=== PATIENT | female | born 1995 | race Two or more races ===

== ENCOUNTER 2024-12-11 16:04 | Observation (INO) | payer MEDICAID, SELFPAY ==
[2024-12-11 16:15] VITALS: BP 133/74; PULSE 112; RESP 16; O2SAT 99
[2024-12-11 16:21] VITALS: BP 111/61; PULSE 97
[2024-12-11 16:34] VITALS: BP 111/61; PULSE 97; RESP 16; RESP 99; TEMP 36.7; BMI 45.1
== END 2024-12-11 17:10 | disposition home or self-care (01) ==
PROVIDERS: Admitting Provider Specialist; Visit Provider Specialist
DX: O36.8130 Decreased fetal movements, third trimester, not applicable or unspecified (principal); Z3A.28 28 weeks gestation of pregnancy
CPT/HCPCS: 59025; 59899; G0378

== ENCOUNTER 2025-02-03 13:29 | Outpatient (RCR) | payer MEDICAID, SELFPAY ==
--- NOTE | 2025-01-20 09:27 | XR_ITS ---
Examination: Biophysical profile, ultrasound Date and time of exam: January 20, 2025 0954 hours INDICATIONS: Obesity, became Technique: Multiple transabdominal sonographic images of the pelvis abdomen obtained. Attention is directed to the breathing movement, gross body movement, amniotic fluid volume and tone. Findings: Amniotic fluid index 10.5 cm Total biophysical profile is 8 of 8. breathing movement is 2. Gross body movement is 2. tone is 2. Qualitative amniotic fluid volume is 2 Impression: Biophysical profile is 8 of 8.
[2025-01-20 11:03] VITALS: BP 110/56; PULSE 79; RESP 16; TEMP 36.7
--- NOTE | 2025-01-27 09:28 | XR_ITS ---
Examination: Biophysical profile, ultrasound Date and time of exam: January 27, 2025 0949 hours INDICATIONS: Diagnosis obesity complicating Technique: Multiple transabdominal sonographic images of the pelvis abdomen obtained. Attention is directed to the breathing movement, gross body movement, amniotic fluid volume and tone. Findings: Amniotic fluid index 15.1 cm Total biophysical profile is 8 of 8. breathing movement is 2. Gross body movement is 2. tone is 2. Qualitative amniotic fluid volume is 2 Impression: Biophysical profile is 8 of 8.
[2025-01-27 10:25] VITALS: BP 95/55; PULSE 93; RESP 16; TEMP 36.7
--- NOTE | 2025-02-03 13:35 | XR_ITS ---
Examination: Biophysical profile, ultrasound Date and time of exam: February 03, 2025 1341 hours INDICATIONS: Diagnosis obesity complicating Technique: Multiple transabdominal sonographic images of the pelvis abdomen obtained. Attention is directed to the breathing movement, gross body movement, amniotic fluid volume and tone. Findings: Amniotic fluid index 6.3 cm Total biophysical profile is 8 of 8. breathing movement is 2. Gross body movement is 2. tone is 2. Qualitative amniotic fluid volume is 2 Impression: Biophysical profile is 8 of 8.
[2025-02-03 14:00] VITALS: BP 112/75; PULSE 92; RESP 16; TEMP 36.7
== END 2025-02-03 23:59 | disposition home or self-care (01) ==
LOC: S4S1 13:29
PROVIDERS: Referring Provider Nurse Practitioner Women's Health; Visit Provider Nurse Practitioner Women's Health
DX: O99.213 Obesity complicating pregnancy, third trimester (principal); E66.9 Obesity, unspecified; Z3A.36 36 weeks gestation of pregnancy
CPT/HCPCS: 59025; 76819

== ENCOUNTER 2025-02-07 17:11 | Outpatient (CLI) | payer MEDICAID, SELFPAY ==
[2025-02-07] VITALS (7 sets, daily range): BP systolic 126; BP diastolic 85; PULSE 100–128; RESP 19–99; TEMP 36.6; O2SAT 99–100; BMI 50.2
--- NOTE | 2025-02-07 17:23 | XR_ITS ---
Examination: Complete OB ultrasound greater than 14 weeks Date and time of exam: February 07, 2025 1728 hours INDICATIONS: Decreased movement beginning this morning Findings: No heart tones Estimated weight 2795.9 g IMPRESSION: demise
--- NOTE | 2025-02-07 19:17 | XR_ITS ---
Examination: Complete OB ultrasound greater than 14 weeks Date and time of exam: February 07, 2025 2029 hours INDICATIONS: Decreased movement beginning this morning Findings: Intrauterine single fetus with single amniotic sac presentation cephalic, no heart tones Placenta posterior grade 2 Umbilical cord insertion not seen Amniotic fluid index 2.1 cm spine maternal right Cervix 1.8 cm Ovaries obscured by bowel gas Composite estimated gestational age based on BPD, head circumference, abdominal circumference, femur length is 36 weeks 1 day Estimated weight 2826 g. Impression: No cardiac motion consistent with demise.
--- NOTE | 2025-02-07 21:30 | PC.NURSE ---
Hand-off report from Stephanie Calix RN. RN x2 at bedside with patient to discuss plan of care. Patient requests to see a copy of her ultrasound confirming the demise. Patient informed that there is a process to this through medical records and that we cannot print anything for patient to take home. However, patient informed that if this is too much information to take in at this time and patient cannot make a decision as to how she would choose to have her baby, that she may go home to think about this and discuss with family the next best action and plan of care. Patient states that she would rather be discharged and allowed to return home and to follow-up with her poultry slaughterer on Sunday, as previously discussed by Dr. Huddleston.
--- NOTE | 2025-02-07 22:00 | ESPR_ITS ---
Addendum Progress Note Addendum Date of report being addended: 02/07/25 Narrative: The patient is a 29-year-old G1, P0 at 36-5/7 weeks estimated gestational age who presented to OB triage reporting decreased movement since 8:00 this morning. She called triage around 4 PM today and was told to come in to get evaluated. She was on the unit at 5 PM. The construction project administrator could not find heart tones on Doppler and I was called immediately to bedside. I performed a bedside ultrasound and did not see cardiac activity. We called for an official ultrasound which was present at bedside approximately 20 minutes later. An official ultrasound revealed an intrauterine demise with no FHTs and no movement. The baby was in a vertex presentation with an EFW of 2796 gm. The baby's measurements were consistent with 36-2/7 weeks. The patient was receiving regular care visits through [facility]. We unfortunately had no records available from [facility] at the time of evaluation in triage. Per patient, she has had been having an uncomplicated . She stated that she saw a maternal- medicine provider this for an ultrasound. She stated that she had normal genetic testing. Today, she denied fevers,chills, loss of fluids, contractions, or vaginal bleeding. She denied any recent trauma. She denied nausea and vomiting. She denies smoking or drug use. She stated that sometimes she would eat a popsicle and she would feel the baby move. She stated this was not working today so she called the hospital and was told to come immediately to OB triage. Of note, the patient was getting weekly NSTs and BPP's for maternal obesity. Her BMI is 50. She was last seen in triage for an NST and BPP on February 03, 2025. At the time, the biophysical profile was 8 out of 8. The JAKE was 6.3. The patient had a reactive tracing. She denies hypertension, diabetes, or any other chronic medical problems this . On evaluation evaluation in triage her vital signs were stable specifically she was not hypertensive she was afebrile her O2 sats were within normal limits. The patient was understandably quite upset and called in multiple family members who came to bedside. The patient herself is bilingual. Many of her family members speak only Yakut. I went to the bedside to discuss a demise with the patient and her family members. Renae, the charge manager, was at bedside translating. The patient was crying. Her family had multiple questions about why the patient had a demise. They asked about next steps. The father the baby came a while later. Upon further discussion, the father the baby requested a second official ultrasound be performed to confirm the findings. Another greenhouse technician was called up to perform a bedside ultrasound which again revealed an intrauterine demise at 36-2/7 weeks with no cardiac activity. I told the patient and her family that a demise is a rare occurrence especially in a low risk patient. I explained we would try to find out why she had a demise at delivery. I would recommend sending the placenta, checking the baby for chromosome problems, and checking lab work to try to find out any etiology. I explained two thirds of the time no etiology is found. They are all quite upset. They especially wanted to know how the patient could have a reactive NST on SundayFebruary 03. As for next steps, I told the patient and the family it is best for the patient to deliver vaginally. That we would induce her labor with medications. I explained that this could be a long induction. I did not recommend a for delivery as it puts the patient at risk for bleeding, infection and further C-sections. The patient was asking when Vivi is front window cashier again. According to the call schedule, Vivi is on on February 10. Told the patient that unfortunately since it is a Sunday it would be difficult to send her in for a second opinion with an ultrasound unless she goes to another emergency room which I did not recommend. If the patient declines induction now, I recommended the patient go home and follow-up with Vivi on Sunday. She can then be referred for a second opinion to another provider or to another ultrasound if she so desires. The patient was given information on up-to-date about stillbirth. She was given discharge instructions including to come back for any heavy bleeding, painful contractions, fevers, chills, foul vaginal odor or loss of fluids. All questions were answered to the best of my ability. The patient elected to be discharged at this time.
== END 2025-02-07 22:15 | disposition home or self-care (01) ==
LOC: S4S1 17:12 → S4SX 17:14
PROVIDERS: Referring Provider Obstetrics & Gynecology; Visit Provider Obstetrics & Gynecology
DX: O36.8130 Decreased fetal movements, third trimester, not applicable or unspecified (principal); O36.4XX0 Maternal care for intrauterine death, not applicable or unspecified; Z3A.36 36 weeks gestation of pregnancy
CPT/HCPCS: 76805; 80307

== ENCOUNTER 2025-02-10 05:37 | Inpatient (IN) | payer MEDICAID, SELFPAY ==
[2025-02-10] VITALS (114 sets, daily range): BP systolic 96–134; BP diastolic 51–73; PULSE 80–126; RESP 16–20; TEMP 36.6–37.2; O2SAT 92–100; BMI 47.5
[2025-02-10 06:58] LABS: Basophils # (Auto) 0.0 Thou/mm3 (0.0-0.2); Basophils % (Auto) 0 % (0-2.5); Eosinophils # (Auto) 0.1 Thou/mm3 (0.0-0.5); Eosinophils % (Auto) 1 % (0-10); Hematocrit 35.8 % (36.0-46.0); Hemoglobin 12.2 g/dL (12.0-16.0); Immature Granulocytes Auto 0.21 Thou/mm3 (0.00-0.00); Lymphocytes # (Auto) 2.3 Thou/mm3 (1.0-4.8); Lymphocytes % (Auto) 30 % (10-50); Mean Corpuscular HGB Conc 34.1 g/dl (31.0-37.0); Mean Corpuscular Hemoglobin 29.0 pg (25.0-35.0); Mean Corpuscular Volume 85 fL (80-100); Monocytes # (Auto) 0.6 Thou/mm3 (0.0-0.8); Monocytes % (Auto) 7 % (0-12); Neutrophils # (Auto) 4.3 Thou/mm3 (1.8-7.7); Neutrophils % (Auto) 58 % (37-80); Nucleated Red Blood Cell # 0.00 Thou/mm3 (0.00-0.00); Nucleated Red Blood Cell % 0 /100 WBC (0); Platelet Count 198 Thou/mm3 (140-440); RDW Standard Deviation 45.8 fL (36.4-46.3); Red Blood Count 4.20 Miln/mm3 (4.00-5.20); White Blood Count 7.4 Thou/mm3 (3.6-11.0)
[2025-02-10] MEDS: ceFAZolin/D5W 2 GM IV 2 GM/100 ML BAG IV ×3 (07:29→23:18)
[2025-02-10] MEDS: FAMOTIDINE INJ 10 MG/ML VIAL 2 ML 20 MG IV (07:29)
[2025-02-10] MEDS: METOCLOPRAMIDE INJ 5 MG/ML VIAL 2 ML 10 MG IVP (07:29)
[2025-02-10 07:32] LABS: Syphilis Nonreactive (Nonreactive)
[2025-02-10 07:32] LABS: Amphetamine/Metham Scrn,Ur OB Negative (Negative); Benzoylecgonine Screen, Ur OB Negative (Negative); Opiate Screen,Urine OB Negative (Negative); THC Screen,Urine OB Negative (Negative)
--- NOTE | 2025-02-10 07:36 | PD.LDHP ---
Documentation for date of: 02/10/25 OB Labor/Induct. HPI History of Present Illness Chief complaint: Primary for intrauterine demise : 1 Para: 0 Term pregnancies: 0 pregnancies: 0 Living children: 0 History of Abortions: Spontaneous and Elective: 0 History of sections: No History of : No CARMELA: 03/02/25 Gestational Age (weeks): 37 Gestational Age (days): 1 History of present illness: 29-year-old G1, P0 at 37 weeks and 1 day is presenting for scheduled primary due to intrauterine demise. Patient initially presented to triage on 02/07/2025 with decreased movement and asystole was diagnosed during triage evaluation. She was counseled by the on-call physician with all options including admission for induction versus delivery and patient left the hospital wanting more time to decide/get a second opinion. Patient returned again yesterday requesting to be delivered via section. On presentation she was counseled by me extensively I reviewed all options including induction of labor versus including the risks and benefits advantages and alternatives of each. After detailed review of all options and the opportunity to ask questions patient and her elected to proceed with delivery via informed consents were obtained and she was scheduled for 7:30 AM today. Patient denies any vaginal bleeding, leakage of fluid, fever, chills, systemic symptoms or any other abnormalities Labs Labs: Unknown: RPR, Hepatitis B, Rubella Titre, HIV, Chlamydia, Gonorrhea, Herpes Type 1, Herpes Type 2, Group Beta Strep and Covid-19 Past Medical History Surgical History SURGICAL: Negative Section Meds Home Medications and Allergies Home Medications ?Medication ?Instructions ?Recorded ?Confirmed ?Type aspirin 81 mg capsule 81 mg PO QDAY 02/07/25 02/10/25 History vits no.130-ferrous fum 1 tab PO QDAY 02/10/25 02/10/25 History 27 mg iron-folic acid 800 mcg tablet ( Vitamin) Allergies Allergy/AdvReac Type Severity Reaction Status Date / Time No Known Allergies Allergy Verified 02/10/25 05:50 OB Exam Physical Exam Vital signs: Temp Pulse Resp BP Pulse Ox O2 Del Method 98.1 F 94 16 111/51 L 98 Room Air 02/10/25 06:16 02/10/25 06:08 02/10/25 06:16 02/10/25 06:08 02/10/25 06:16 02/10/25 06:16 Constitutional Constitutional: no acute distress Routine HEENT Exam Head: Present normocephalic and atraumatic Eye: Present EOMI and PERRL ENT: Present mucous membranes moist Routine Neck Exam Neck: Present supple and trachea midline Routine Cardiovascular Exam Cardiovascular: Present RRR Routine Abdominal Exam Abdominal: Present soft and normoactive bowel sounds Routine Extremities Exam Extremities: Present full ROM Routine Skin Exam Skin: Present intact, dry and warm Routine Neurological Exam Neurological: Present alert, oriented X3 and CN II-XII intact Routine Psychiatric Exam Psychiatric: Present normal affect and normal thought process OB Results Labs 02/10/25 06:00 Labs: Short CBC 02/10/25 Range/Units 06:00 WBC 7.4 (3.6-11.0) Thou/mm3 Hgb 12.2 (12.0-16.0) g/dL Hct 35.8 L (36.0-46.0) % Plt Count 198 (140-440) Thou/mm3 OB Assessment & Plan Assessment and Plan (1) demise, greater than 22 weeks, antepartum, single gestation: Status: Acute Assessment and plan: Admit to inpatient status for primary low transverse IV access, CBC, type and screen, LR at 125, RPR, COVID-19 test GBS negative Ancef 2 g prior to surgery start Dumont catheter to drainage SCDs for DVT prophylaxis Anesthesia to preop for spinal anesthesia Scheduled for surgery. (2) delivery delivered: Status: Acute
--- NOTE | 2025-02-10 08:43 | PD.GYNPROC ---
Operative Note - PERFORMANCE MANAGEMENT CONSULTANT Procedure Date of procedure: 02/10/25 Procedure Performed: Primary low-transverse section Indication: 29-year-old G1, P0 at 37 weeks and 1 day with intrauterine demise Maternal request for delivery Anesthesia type: Spinal Procedure description: Informed consent was obtained and the patient was taken to the operating room. Identity was confirmed by double identifiers and she was placed on the operating table. Spinal anesthesia was administered and she was positioned in the supine position. The abdomen and perineum were prepped in the usual sterile fashion and a Dumont catheter was placed to continuous drainage. Sterile drapes were applied. The incision site was tested for adequacy of anesthesia. A Pfannenstiel skin incision was made with a scalpel and carried to the subcutaneous fat up to the rectus fascia. The rectus fascia was incised on either side of the midline and the incisions were extended bilaterally. The fascia was gently dissected off the ventral surface of the rectus muscle both superiorly and inferiorly. The rectus bellies were gently in the midline and the peritoneum was identified and entered bluntly using the surgeon's finger. The peritoneal opening was now stretched to create an adequate opening for access to the uterus. Vito O-ring retractor was placed for adequate visualization. The anterior surface of the uterus was palpated. The bladder reflection was identified and a Tracy Kinsey low transverse uterine incision was made in the lower uterine segment taking care to avoid the bladder. Uterine entry was accomplished bluntly and the opening was stretched to create adequate room. The amniotic membranes were now ruptured and bloodstained amniotic fluid was released. The fetus was noted to be in the vertex position. There was molding of the head with overlapping of skull bones. The skin also appeared to be macerated with peeling The head was gently elevated out of the maternal pelvis and multiple loops of umbilical cord were noted to be wrapped around the legs and body with stretching and almost shearing of the umbilical cord insertion on the side. The cord was released and the rest of the shoulders and body were delivered by gentle fundal pressure. Umbilical cord was doubly clamped, divided and the infant was handed over to the waiting team. The placenta was delivered by gentle traction on the umbilical cord. The interior of the uterus was now thoroughly cleaned of all blood and debris and membranes. The hysterotomy angles were grasped by a pair of Allis clamps and the hysterotomy was closed using 1 Monocryl suture in 2 layers. The first layer was used to approximate the muscle in a running locked fashion, the second layer was used to approximate the thickness of the myometrium and uterine serosa in an imbricated manner. Once the repair was completed the hysterotomy was inspected and noted to be adequately hemostatic. The hysterotomy was once again inspected and hemostasis was noted to be satisfactory. The Vito retractor was now removed. The peritoneal edges were re approximated. The rectus muscles were re approximated. The rectus fascia was now repaired using 0 Vicryl suture in a running fashion. The subcutaneous layer was now copiously irrigated using warm normal saline. All bleeding points were cauterized using the Bovie. The subcutaneous fat was closed using 3-0 Vicryl. The skin was closed using 4-0 Monocryl in a subcuticular fashion. The skin was cleaned and a sterile dressing was applied. The patient was now undraped, the abdomen and back were thoroughly cleaned and she was transferred to the recovery room in a stable and awake condition. The patient tolerated the entire procedure well. No complications were encountered. All instrument, sponge and lap counts were correct x2. Estimated blood loss (ml): 600 Complications: none Surgical staff Operation Date: 02/10/25 07:45 Case Staff CORPORATE MANAGER: Wagner Davies RN First Assistant: Antonella Burkett Diagnosis Discharge Diagnosis (1) delivery delivered: Status: Acute (2) demise, greater than 22 weeks, antepartum, single gestation: Status: Acute Problem List Completed Was Problem List Reviewed/Reconciled?: Yes
--- NOTE | 2025-02-10 08:46 | PD.LDDELS ---
Data ([place]) Data Hx Section: No : 1 Term: 0 : 0 Livin Abortions: Spontaneous & Theraputic: 0 Delivery Data ([place]) Labor Data Induction/Augmentation Agent: None ROM date: 02/10/25 ROM time: : Amniotic membrane rupture type: Artificial Amniotic fluid description: Clear Delivery Data [place] delivery date: 02/10/25 delivery time: 08: Placenta delivery date: 02/10/25 Placenta delivery time: : Delivered by: Carol Delivery nurse: Keeley Paez nurse: Dayana Neely Sports Manager at delivery: No Support person(s) at delivery: [facility] Delivery Method Delivery method: Low Transverse Presentation: Vertex Anesthesia Type Anesthesia Type: Spinal Anesthesia type: Spinal Placenta Placenta delivery description: Manual Removal Episiotomy Episiotomy description: None [place] Data ([place]) Data 's gender: Female weight (gms): 2740 g Weight (pounds): 6 lbs and 0.7 ozs [place] length: 48 cm
[2025-02-10] MEDS: OXYTOCIN in NS 20 units 20 UNIT/1,000 ML BAG 125 UNIT IV ×2 (09:37→20:04)
--- NOTE | 2025-02-10 10:52 | PC.NURSE ---
0822 stillbirth baby girl, to warmer for measurements: Wt: 2740g, Head: 33cm, chest: 31cm, abdomen: 29cm, Lenght: 48cm. Wrapped with hospital blanket then brought to [facility] in cooling crib. At 1050 baby [facility] to [facility] [place] by Velvet Lee RN
[2025-02-10] MEDS: ONDANSETRON INJ 2 MG/ML INJ 2 ML 4 MG IV (11:22)
[2025-02-10] MEDS: SODIUM CHLORIDE 0.9% 1000 ML 1,000 ML 999 ML IV (11:49)
[2025-02-10] MEDS: KETOROLAC INJ 30 MG/ML VIAL IVP ×2 (13:00→20:09)
--- NOTE | 2025-02-10 13:58 | PC.NURSE ---
RN at bedside discussing POC for infant, education given on the cuddle cot use and recommendation of releasing remains at 4hr shireen. Pt choosing [place] [facility] [place], donor network contacted and aware of stillbirth, Ornament Maker Hand edita rebollar arrived to [facility] at 1050 case #: [id number], [facility] called for baby blessing Deacon Ron Clarke at bedside at 1350 for prayer/blessing. Patient given crib card, memory box, foot prints, photos, and support groups information. Social service ordered for patient. 1410 RN asking patient if ready for mortuary to come for remains pt states that she'd like more time with her baby.
[2025-02-10 14:25] LABS: Lactate (Lactic Acid) 1.3 mMol/L (0.4-2.0)
[2025-02-10 14:34] LABS: Basophils # (Auto) 0.0 Thou/mm3 (0.0-0.2); Basophils % (Auto) 0 % (0-2.5); Eosinophils # (Auto) 0.0 Thou/mm3 (0.0-0.5); Eosinophils % (Auto) 0 % (0-10); Hematocrit 32.4 % (36.0-46.0); Hemoglobin 10.7 g/dL (12.0-16.0); Immature Granulocytes Auto 0.11 Thou/mm3 (0.00-0.00); Lymphocytes # (Auto) 1.1 Thou/mm3 (1.0-4.8); Lymphocytes % (Auto) 13 % (10-50); Mean Corpuscular HGB Conc 33.0 g/dl (31.0-37.0); Mean Corpuscular Hemoglobin 29.3 pg (25.0-35.0); Mean Corpuscular Volume 89 fL (80-100); Monocytes # (Auto) 0.5 Thou/mm3 (0.0-0.8); Monocytes % (Auto) 6 % (0-12); Neutrophils # (Auto) 7.1 Thou/mm3 (1.8-7.7); Neutrophils % (Auto) 80 % (37-80); Nucleated Red Blood Cell # 0.00 Thou/mm3 (0.00-0.00); Nucleated Red Blood Cell % 0 /100 WBC (0); Platelet Count 171 Thou/mm3 (140-440); RDW Standard Deviation 47.2 fL (36.4-46.3); Red Blood Count 3.65 Miln/mm3 (4.00-5.20); White Blood Count 8.9 Thou/mm3 (3.6-11.0)
[2025-02-10 14:57] LABS: Alanine Aminotransferase 19 U/L (10-49); Albumin, Serum 3.3 gm/dL (3.5-5.0); Albumin/Globulin Ratio 1.4 (1.2-2.2); Alkaline Phosphatase 127 U/L (46-116); Anion Gap 13 (7-16); Aspartate Amino Transferase 22 U/L (0-34); BUN/Creatinine Ratio 10 Ratio (12-20); Bilirubin,Total 0.5 mg/dL (0.3-1.2); Blood Urea Nitrogen < 5 mg/dL (9-23); Calcium 8.4 mg/dL (8.3-10.6); Calcium (Corrected) 9.0 mg/dL (8.5-10.1); Carbon Dioxide 19.3 mMol/L (20.0-31.0); Chloride 110 mMol/L (98-107); Creatinine (Component) 0.5 mg/dL (0.6-1.3); Estimated Creatinine Clearance 206.1 mL/min (>60); Globulin 2.4 gm/dL (2.3-3.5); Glucose 105 mg/dL (74-106); Osmolality,Calculated 280 (275-295); Potassium 3.8 mMol/L (3.4-5.1); Sodium 142 mMol/L (136-145); Total Protein 5.7 gm/dL (5.7-8.2); eGFR > 60 See Note
--- NOTE | 2025-02-10 15:47 | PC.NURSE ---
1540 [facility] at bedside for .
[2025-02-11] MEDS: HYDROcodone/APAP 5/325 TABLET 2 TAB PO ×2 (03:28→15:36)
[2025-02-11 03:33] VITALS: BP 102/65; PULSE 87; RESP 19; TEMP 36.6; O2SAT 99
[2025-02-11 06:11] LABS: Basophils # (Auto) 0.0 Thou/mm3 (0.0-0.2); Basophils % (Auto) 0 % (0-2.5); Eosinophils # (Auto) 0.1 Thou/mm3 (0.0-0.5); Eosinophils % (Auto) 1 % (0-10); Hematocrit 29.9 % (36.0-46.0); Hemoglobin 9.8 g/dL (12.0-16.0); Immature Granulocytes Auto 0.14 Thou/mm3 (0.00-0.00); Lymphocytes # (Auto) 1.3 Thou/mm3 (1.0-4.8); Lymphocytes % (Auto) 16 % (10-50); Mean Corpuscular HGB Conc 32.8 g/dl (31.0-37.0); Mean Corpuscular Hemoglobin 29.3 pg (25.0-35.0); Mean Corpuscular Volume 90 fL (80-100); Monocytes # (Auto) 0.7 Thou/mm3 (0.0-0.8); Monocytes % (Auto) 8 % (0-12); Neutrophils # (Auto) 6.3 Thou/mm3 (1.8-7.7); Neutrophils % (Auto) 74 % (37-80); Nucleated Red Blood Cell # 0.00 Thou/mm3 (0.00-0.00); Nucleated Red Blood Cell % 0 /100 WBC (0); Platelet Count 156 Thou/mm3 (140-440); RDW Standard Deviation 47.5 fL (36.4-46.3); Red Blood Count 3.34 Miln/mm3 (4.00-5.20); White Blood Count 8.5 Thou/mm3 (3.6-11.0)
[2025-02-11 07:59] VITALS: BP 99/57; PULSE 96
[2025-02-11] MEDS: ceFAZolin/D5W 2 GM IV 2 GM/100 ML BAG IV (08:19)
[2025-02-11] MEDS: DOCUSATE SOD 100 MG CAPSULE PO (08:19)
[2025-02-11] MEDS: IBUPROFEN TAB 400 MG TABLET 800 MG PO ×2 (08:26→19:09)
[2025-02-11 08:33] VITALS: BP 99/57; PULSE 96; RESP 18; TEMP 36.8
--- NOTE | 2025-02-11 12:30 | ESPR_ITS ---
Subjective Subjective Interval history: Delivery type: , intrauterine demise Patient doing well this morning. No acute complaints. Ambulating, tolerating p.o. and voiding without difficulty. HTN/Pre-Eclampsia screen: No chest pain, shortness of breath, headache, visual changes, epigastric or right upper quadrant pain. Bowel: Flatus+ UOP: Exam Vital Signs Temp Pulse Resp BP Pulse Ox O2 Del Method 98.3 F 96 18 99/57 L 99 Room Air 02/11/25 08:33 02/11/25 08:33 02/11/25 08:33 02/11/25 08:33 02/11/25 03:33 02/11/25 08:33 Constitutional Constitutional: no acute distress Routine HEENT Exam Head: Present normocephalic and atraumatic Eye: Present EOMI and PERRL ENT: Present mucous membranes moist Routine Neck Exam Neck: Present supple and trachea midline Routine Respiratory Exam Respiratory: Present chest non-tender, lungs clear, normal breath sounds and no resp distress Routine Cardiovascular Exam Cardiovascular: Present RRR Routine Abdominal Exam Abdominal: Present soft and normoactive bowel sounds Routine Extremities Exam Extremities: Present full ROM Routine Skin Exam Skin: Present intact, dry and warm Routine Neurological Exam Neurological: Present alert, oriented X3 and CN II-XII intact Routine Psychiatric Exam Psychiatric: Present normal affect and normal thought process Objective Labs 02/11/25 05:25 02/10/25 14:00 Labs: Laboratory Results - last 24 hr 02/10/25 02/11/25 14:00 05:25 WBC 8.9 8.5 RBC 3.65 L 3.34 L Hgb 10.7 L 9.8 L Hct 32.4 L 29.9 L MCV 89 90 MCH 29.3 29.3 MCHC 33.0 32.8 RDW Std Deviation 47.2 H 47.5 H Plt Count 171 156 Neut % (Auto) 80 74 Lymph % (Auto) 13 16 [place] % (Auto) 6 8 Eos % (Auto) 0 1 Baso % (Auto) 0 0 Neut # (Auto) 7.1 6.3 Lymph # (Auto) 1.1 1.3 [place] # (Auto) 0.5 0.7 Eos # (Auto) 0.0 0.1 Baso # (Auto) 0.0 0.0 Immature Gran # (Auto) 0.11 H 0.14 H Absolute Nucleated RBC 0.00 0.00 Immature Gran % 1 H 2 H Nucleated RBC % 0 0 Sodium 142 Potassium 3.8 Chloride 110 H Carbon Dioxide 19.3 L Anion Gap 13 BUN < 5 L Creatinine 0.5 L Estim Creat Clear Calc 206.1 eGFR > 60 BUN/Creatinine Ratio 10 L Glucose 105 Calculated Osmolality 280 Lactic Acid 1.3 Calcium 8.4 Corrected Calcium 9.0 Total Bilirubin 0.5 AST 22 ALT 19 Alkaline Phosphatase 127 H Total Protein 5.7 Albumin 3.3 L Globulin 2.4 Albumin/Globulin Ratio 1.4 Assessment & Plan Problem List (1) delivery delivered: Status: Acute Assessment and plan: 1. Continue routine /post-op care 2. Labs reviewed, cbc appropriate 3. Remove dressing/Dumont 4. Encourage to ambulate, shower 5. Encourage PO intake (2) demise, greater than 22 weeks, antepartum, single gestation: Status: Acute Time Spent With Patient Time: Total time spent is greater than 50% in coordination of care (as documented) at patient's floor/unit and/or counseling patient:
[2025-02-11 12:50] VITALS: BP 110/75; PULSE 114; RESP 16; TEMP 36.7; O2SAT 96
[2025-02-11 15:35] VITALS: BP 102/67; PULSE 92; RESP 18; TEMP 36.6; O2SAT 97
[2025-02-11 19:10] VITALS: BP 116/79; PULSE 98; RESP 18; TEMP 36.8; O2SAT 98
[2025-02-11] MEDS: HYDROcodone/APAP 5/325 TABLET 1 TAB PO (23:41)
[2025-02-12 03:55] VITALS: BP 104/68; PULSE 98; RESP 18; TEMP 36.7; O2SAT 98
[2025-02-12] MEDS: IBUPROFEN TAB 400 MG TABLET 800 MG PO (04:05)
--- NOTE | 2025-02-12 06:08 | PC.NURSE ---
Notified Dr. Cordero regarding patient's PPDS score of 25,maternal crisis, [place] Suicide Severity Rating scale done, patient low risk, MD aware. Pending Social service referral. No new orders, will update Dr. Medina.
--- NOTE | 2025-02-12 07:45 | PD.LDPPPRG ---
Subjective Subjective Interval history: Delivery type: , demise at 36 weeks, patient screened positive on EPDS but affect is appropriate for her clinical status, social insurance adviser consult requested Patient doing well this morning. No acute complaints. Ambulating, tolerating p.o. and voiding without difficulty. HTN/Pre-Eclampsia screen: No chest pain, shortness of breath, headache, visual changes, epigastric or right upper quadrant pain. lochia diminishing. Bowel: Flatus+/ BM+ Exam Vital Signs Temp Pulse Resp BP Pulse Ox O2 Del Method 98.1 F 98 18 104/68 98 Room Air 02/12/25 03:55 02/12/25 03:55 02/12/25 03:55 02/12/25 03:55 02/12/25 03:55 02/12/25 03:55 Constitutional Constitutional: no acute distress Routine HEENT Exam Head: Present normocephalic and atraumatic Eye: Present EOMI and PERRL ENT: Present mucous membranes moist Routine Neck Exam Neck: Present supple and trachea midline Routine Respiratory Exam Respiratory: Present chest non-tender, lungs clear, normal breath sounds and no resp distress Routine Cardiovascular Exam Cardiovascular: Present RRR Routine Abdominal Exam Abdominal: Present soft and normoactive bowel sounds Routine Extremities Exam Extremities: Present full ROM Routine Skin Exam Skin: Present intact, dry and warm Routine Neurological Exam Neurological: Present alert, oriented X3 and CN II-XII intact Routine Psychiatric Exam Psychiatric: Present normal affect and normal thought process Objective Labs 02/11/25 05:25 02/10/25 14:00 Assessment & Plan Problem List (1) delivery delivered: Status: Acute Assessment and plan: PPD/POD#2 1. Continue routine care 2. Transition to PO meds. 3. Encourage to ambulate/ breast-feed 4. Anticipate discharge home today. After social insurance adviser consult is completed (2) demise, greater than 22 weeks, antepartum, single gestation: Status: Acute (3) depression: Status: Acute Time Spent With Patient Time: Total time spent is greater than 50% in coordination of care (as documented) at patient's floor/unit and/or counseling patient:
--- NOTE | 2025-02-12 07:47 | ESDS_ITS ---
DS: Providers Provider Date of admission: 02/10/25 05:37 Primary care physician: Physician No Primary/Family Admitting Provider: Jack Medina MD Attending Provider on Admission: Alex Cordero MD Consults: 02/10/25 09:17 Referral Routine Comment: Attending Provider on DC: Jack Medina MD Discharging Provider: Jack Medina MD DS: Diagnosis Discharge Diagnosis (1) depression: Status: Acute (2) delivery delivered: Status: Acute (3) demise, greater than 22 weeks, antepartum, single gestation: Status: Acute Problem List Completed Was Problem List Reviewed/Reconciled?: Yes Summary/Hosp Course Brief History: 29-year-old G1, P0 at 37 weeks and 1 day is presenting for scheduled primary C- section due to intrauterine demise. Patient initially presented to triage on 02/07/2025 with decreased movement and asystole was diagnosed during triage evaluation. She was counseled by the on-call physician with all options including admission for induction versus delivery and patient left the hospital wanting more time to decide/get a second opinion. Patient returned again yesterday requesting to be delivered via section. On presentation she was counseled by me extensively I reviewed all options including induction of labor versus including the risks and benefits advantages and alternatives of each. After detailed review of all options and the opportunity to ask questions patient and her elected to proceed with delivery via informed consents were obtained and she was scheduled for 7:30 AM today. Patient denies any vaginal bleeding, leakage of fluid, fever, chills, systemic symptoms or any other abnormalities Peripartum Data Delivery Method: Low Transverse Episiotomy Description: None Procedures: Procedures Operation Date: 02/10/25 07:45 Actual Procedure Side Surgeon p in OB Jack Medina MD Time Spent with Patient Time attestation: Total time spent providing and/or coordinating discharge services: Exam Vital Signs Temp Pulse Resp BP Pulse Ox O2 Del Method 98.1 F 98 18 104/68 98 Room Air 02/12/25 03:55 02/12/25 03:55 02/12/25 03:55 02/12/25 03:55 02/12/25 03:55 02/12/25 03:55 Discharge Plan Plan Patient Disposition: HOME (Self Care) Patient condition on transfer: Stable Prescriptions/Referrals Prescriptions/Med Rec: New hydrocodone-acetaminophen 5-325 mg Tablet 1 tab PO Q6HR MDD 4 PRN (Reason: Patient rated pain 9 to 10) 7 Days Qty: 28 0RF docusate sodium 100 mg Capsule 100 mg PO QDAY 30 Days Qty: 30 0RF ibuprofen 400 mg Tablet 800 mg PO Q8HR PRN (Reason: Pain Scale 4-6 (Moderate) 10 Days Qty: 40 0RF Continued aspirin 81 mg capsule 81 mg PO QDAY Vitamin 27 mg iron- 800 mcg tablet 1 tab PO QDAY Referrals: No Primary/Family,Physician [Primary Care Provider] - Jack Medina MD [Physician] - Patient/Caregiver Discharge Instructions Meds to Beds: Yes Discharge Activity: activity as tolerated Education Materials: C Section Dc, Depression, After a , Stillbirth Print Language: Maltese Stand Alone Forms: Chaparrita Award Info., Patient Portal Info Letter, KAREL from Surgery Planned Discharge Date 02/12/25
[2025-02-12] MEDS: HYDROcodone/APAP 5/325 TABLET 2 TAB PO (07:51)
[2025-02-12 08:38] VITALS: BP 103/73; PULSE 92; PULSE 97; RESP 16; TEMP 37; O2SAT 98
--- NOTE | 2025-02-12 10:25 | PC.NURSE ---
Dr. Medina notified RN that he went to bedside and spoke to pt, per MD pt is ok to go home as soon as healthcare social worker clears pt.
[2025-02-12] MEDS: DOCUSATE SOD 100 MG CAPSULE PO (11:10)
--- NOTE | 2025-02-12 11:16 | PC.NURSE ---
1110: Johny from social media analyst spoke to the patient Yolie and provided county resources, per Johny patient is cleared to be discharged home. Notified Catalina Shaffer RN to discharge patient home.
[2025-02-12 11:20] VITALS: BP 116/74; PULSE 93; RESP 18; TEMP 36.8; O2SAT 97
--- NOTE | 2025-02-12 11:57 | PC.SS ---
REED REPAIRER conducted bedside contact with the patient to address nursing referral regarding patient?s delivery of still born infant.? REED REPAIRER introduced self and role.? At bedside with patient was Canelo SHAIKH.? Patient granted permission for FOB to be present during discussion.? Patient confirmed still born of female infant.? was patient?s first child.? Patient confirmed presence of depression due to loss.? REED REPAIRER acknowledged presence of emotion due to circumstance.? Although level of depression present, patient denies current intent/plan of SI/HI.? Patient reports possessing healthy support system consisting of FOB, mother and extended family.? FOB informed REED REPAIRER that he and family will be present with patient as she processes event.? Patient informed REED REPAIRER past alignment with mental health due to history of anxiety.? Per patient engaging in talk therapy approximately 2 years ago.? Patient informed REED REPAIRER plan to reconnect with mental health services through [facility] due past alignment with agency.? Patient was engaged and responsive throughout the discussion.? Patient informed REED REPAIRER that she will be able to draw family support upon return home.? FOB reiterated that patient will not be alone upon return home.? REED REPAIRER provided resource information to include: Warm Line, Crisis Line, Mental Health services and Care Resource Center.? REED REPAIRER offered patient and FOB condolescence.? REED REPAIRER update Labor and Delivery charge nurse.
== END 2025-02-12 11:35 | disposition home or self-care (01) | DRG 540 ==
PROVIDERS: Admitting Provider Obstetrics & Gynecology; Visit Provider Specialist
PROC: 10D00Z1 Extraction of Products of Conception, Low, Open Approach (ICD-10-PCS; CPT 59514; principal; 2025-02-10 07:30)
DX: O36.4XX0 Maternal care for intrauterine death, not applicable or unspecified (principal); Z37.1 Single stillbirth; Z3A.37 37 weeks gestation of pregnancy; O99.345 Other mental disorders complicating the puerperium; F53.0 Postpartum depression
CPT/HCPCS: 36415; 59409; 80053; 80307; 83605; 85025; 86780; 86850; 86900; 86901; 87040; 94762; 96127; A4314; A4649; J0689; J1885; J2210; J2250; J2274; J2371; J2405; J2590; J2765; J3010; J3490; J7030; A9270; J2270

== ENCOUNTER 2025-02-20 15:33 | Outpatient (AMB) | payer MEDICAID, SELFPAY ==
[2025-02-20 15:59] VITALS: BP 119/82; PULSE 86; RESP 17; TEMP 36.9; O2SAT 96; BMI 45.2
--- NOTE | 2025-02-20 15:59 | AMB.OBPP ---
Vital Signs 02/20/25 15:59 Height 1.57 m Height Method Stated Weight 111.584 kg Weight Measurement Method Standing Scale BMI 45.2 BP 119/82 Blood Pressure Source Automatic Cuff Blood Pressure Location Right Upper Arm Position Sitting Respiration 17 Pulse 86 Pulse Source Monitor Temp 98.5 F Temp Source Temporal Artery Scan Pulse Oximetry (%) 96 Oxygen Delivery Method Room Air Allergies/Home Meds Allergies & Medications Allergies No Known Allergies Allergy (Verified 02/20/25 16:00) Medication Reconciliation ibuprofen 400 mg tablet 800 mg (2 x 400 mg) PO Q8HR PRN Pain Scale 4-6 (Moderate 10 days #40 tabs 02/12/25 [Rx Confirmed 02/20/25] ibuprofen 800 mg tablet 800 mg PO Q8H PRN pain 10 days #30 tabs 02/20/25 [Rx] omeprazole 20 mg capsule,delayed release 20 mg PO QDAY 30 days #30 caps 02/20/25 [Rx] Intake Visit Data Collection New Patient or Established: Established Patient (seen at [facility] within 3 years) Reason for Visit:: Seen by Clinical Staff ONLY (RN/MA): No Drier Operator Helper Required: No Do You Feel Safe at Home: Yes Authorities Contacted: N/A PCP or OBGYN visit in last 3 months: Yes Date of Last PCP or OBGYN visit: 02/12/25 Hx Now: No Are you currently on any form of Control: No Pain Present Currently: Yes Pain Location: Abdomen Pain Scale Used: Berkowitz-Dodd/Numerical Pain scale:: 1 Smoking Status Smoking Status: 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 Past Medical History: No Hx Neurological Disorders, No Hx Cardiac Disorders, No Hx Cancer, Yes Hx Blood Disorders, Yes Hx Anemia, No Hx Gastrointestinal Disorders, No Hx Renal Disease, No Hx Diabetes Mellitus Type 1 and No Hx Diabetes Mellitus Type 2 Questionnaires Covid-19 Vaccine Questionnaire Has patient been vacinated for Covid-19 Have you been vacinated for Covid-19: No Social History Living Situation History Marital Status: Life Partner Lives With: Family Housing: House Tobacco History Smoking Status: Never smoker Second Hand Smoke Exposure: No Alcohol History Alcohol Intake: Never Domestic Abuse History Do You Feel Safe at Home: Yes EPDS - PP Depression Screening [place] Pospartum Depression Screen I have been able to laugh and see the funny side of things: (1) Not quite so much now I have looked forward with enjoyment to things: (3) Hardly at all I have blamed myself unnecessarily when things went wrong: (2) Yes, some of the time I have been anxious or worried for no good reason: (2) Yes, sometimes I have felt scared or panicky for no very good reason: (2) Yes, sometimes Things have been getting on top of me: (2) Yes, sometimes I haven't been coping as well as usual I have been so unhappy that I have had difficulty sleeping: (2) Yes, sometimes I have felt sad or miserable: (3) Yes, most of the time I have been so unhappy that I have been crying: (3) Yes, most of the time The thought of harming myself has occurred to me: (1) Hardly ever EPDS completed yes HPI Interval History: Patient reports that her incision site is getting a little itchy approximately 10 days after undergoing a section due to intrauterine demise at 36 weeks. She has been showering as instructed and has stopped taking prescribed pain medication due to experiencing drowsiness as a side effect. The patient is now managing her pain with [id number] medications as needed. She inquires about resuming activities such as driving and exercising. The patient mentions that she was instructed by a nurse not to remove certain tapes from her incision site. She denies experiencing constipation or other postoperative complications. Patient expresses interest in returning to her gym routine and requests a prescription for ibuprofen. She is a G1 T1 L1 who delivered via section approximately 10 days ago due to intrauterine demise. The patient has discontinued her prescribed pain medication due to causing sleepiness and drowsiness, and is now taking ibuprofen and Tylenol as needed for pain management. Patient engages in gym activities, including weights and cardio, and is able to perform simple housework. Reports good range of motion and denies constipation. She experiences itching at incision site. Exam Narrative Physical exam: - Abdomen: Incision site observed. [place] tape present over incision, which was removed. Incision appears to be healing well. No signs of infection or complications noted. - Musculoskeletal: Good range of motion observed. Office Procedures OB Clinic LOC & Office Proc's Nursing/Assessment Patient Status: Established Patient OB Clinic Nursing Assessment: Medication Reconciliation, Update PMH in EMR and Vital Signs OB Clinic Coordination of Care: Complex Care and Chronic Disease 1-5, Consent,records obtained, informed consent, Education Simp Pt/Fam and Staff clarify orders Established Patient Charge Established Patient Point Assignment: 85 Post Follow-up Visit Post Follow up Visit: Yes Assessment & Plan Diagnosis / Problem List (1) Routine Follow-Up: (2) Encounter for routine follow-up: Status: Acute Plan Status post section: - Incision site healing appropriately, described as beautiful upon examination. - Itching at incision site, likely due to waterproof tape still in place. - No signs of infection or complications noted. - Patient has stopped prescribed pain medication due to drowsiness. - Managing pain with [id number] analgesics as needed. Plan: - Remove all remaining surgical tape and dressings from incision site. - Continue wound care with gentle cleansing during showers. - Advance activity as tolerated: ? OK to drive. ? OK for simple housework, avoiding mopping or lifting from floor. ? Begin gentle exercises like walking and swimming. ? Avoid weight-bearing exercises for 1 month. - Prescribe ibuprofen for pain management: ? Send prescription to [facility] on [address]. ? Educate patient to take with food to avoid gastric irritation. - Follow-up appointment scheduled for 1 month post-surgery. - Anticipate lifting all activity restrictions at 1-month follow-up. (FP) Tobacco Smoking Status: Never smoker
== END 2025-02-20 16:13 | disposition home or self-care (01) ==
LOC: HODSOBC 15:33
PROVIDERS: Supervising Provider Obstetrics & Gynecology; Visit Provider Obstetrics & Gynecology
DX: Z39.2 Encounter for routine postpartum follow-up (principal)

== ENCOUNTER 2025-03-14 08:36 | Emergency (ER) | payer MEDICAID, SELFPAY ==
[2025-03-14 08:45] VITALS: BP 105/75; PULSE 103; RESP 17; TEMP 36.7; O2SAT 96; BMI 44.1
--- NOTE | 2025-03-14 08:58 | XR_ITS ---
Examination: Pelvic ultrasound, transabdominal, complete Technique: Transabdominal ultrasound of the pelvis performed using grayscale imaging Date and time of exam: March 14, 2025, 0909 hours INDICATIONS: Status post February 10, 2025, onset vaginal bleeding beginning 2 days ago FINDINGS: Uterus 8.8 cm endometrial stripe 10 mm No definite retained products of conception Right ovary 3.5 cm arterial flow Left ovary 2.7 cm arterial flow 50 mm follicular cyst IMPRESSION: Negative for retained products of conception
[2025-03-14 10:06] LABS: White Blood Count 6.8 Thou/mm3 (3.6-11.0)
[2025-03-14 10:07] LABS: Basophils # (Auto) 0.0 Thou/mm3 (0.0-0.2); Basophils % (Auto) 0 % (0-2.5); Eosinophils # (Auto) 0.4 Thou/mm3 (0.0-0.5); Eosinophils % (Auto) 5 % (0-10); Hematocrit 37.1 % (36.0-46.0); Hemoglobin 12.4 g/dL (12.0-16.0); Immature Granulocytes Auto 0.09 Thou/mm3 (0.00-0.00); Lymphocytes # (Auto) 2.1 Thou/mm3 (1.0-4.8); Lymphocytes % (Auto) 30 % (10-50); Mean Corpuscular HGB Conc 33.4 g/dl (31.0-37.0); Mean Corpuscular Hemoglobin 29.2 pg (25.0-35.0); Mean Corpuscular Volume 87 fL (80-100); Monocytes # (Auto) 0.5 Thou/mm3 (0.0-0.8); Monocytes % (Auto) 8 % (0-12); Neutrophils # (Auto) 3.7 Thou/mm3 (1.8-7.7); Neutrophils % (Auto) 55 % (37-80); Nucleated Red Blood Cell # 0.00 Thou/mm3 (0.00-0.00); Nucleated Red Blood Cell % 0 /100 WBC (0); Platelet Count 185 Thou/mm3 (140-440); RDW Standard Deviation 42.8 fL (36.4-46.3); Red Blood Count 4.25 Miln/mm3 (4.00-5.20)
[2025-03-14 10:20] LABS: HCG,Qualitative Serum Negative
[2025-03-14 10:27] LABS: INR 1.0 (0.9-1.3); Partial Thromboplastin Time 23.7 Seconds (22.0-36.0); Prothrombin Time 10.9 Seconds (9.0-12.2)
[2025-03-14 10:28] LABS: Alanine Aminotransferase 77 U/L (10-49); Albumin, Serum 4.2 gm/dL (3.5-5.0); Albumin/Globulin Ratio 1.6 (1.2-2.2); Alkaline Phosphatase 103 U/L (46-116); Anion Gap 9 (7-16); Aspartate Amino Transferase 42 U/L (0-34); BUN/Creatinine Ratio 11 Ratio (12-20); Bilirubin,Total 0.4 mg/dL (0.3-1.2); Blood Urea Nitrogen 9 mg/dL (9-23); Calcium 9.1 mg/dL (8.3-10.6); Calcium (Corrected) 9.1 mg/dL (8.5-10.1); Carbon Dioxide 24.9 mMol/L (20.0-31.0); Chloride 105 mMol/L (98-107); Creatinine (Component) 0.8 mg/dL (0.6-1.3); Estimated Creatinine Clearance 122.0 mL/min (>60); Globulin 2.6 gm/dL (2.3-3.5); Glucose 97 mg/dL (74-106); Osmolality,Calculated 276 (275-295); Potassium 4.4 mMol/L (3.4-5.1); Sodium 139 mMol/L (136-145); Total Protein 6.8 gm/dL (5.7-8.2); eGFR > 60 See Note
--- NOTE | 2025-03-14 11:07 | PD.EDVAGBL ---
ED OB Contraction Preg RMI/HPI General Chief complaint: Vaginal Bleeding Stated complaint: POST- VAGINAL BLEEDING X PM; DELIVERY X 1 M Time Seen by Provider: 03/14/25 08:56 Arrival date/time: 03/14/25 08:36 30-year-old female with no significant medical problems presents to the emergency department today stating that she gave approximately 1 month ago patient reports that she noted some bleeding 2 days ago and bleeding today patient reports otherwise has been well since giving Limitations: no limitations Related Data Previous Rx's ?Medication ?Instructions ?Recorded omeprazole 20 mg capsule,delayed 20 mg PO QDAY 30 days #30 caps 02/20/25 release Allergies Allergy/AdvReac Type Severity Reaction Status Date / Time No Known Allergies Allergy Verified 03/14/25 08:40 Review of Systems Review of Systems Systems Reviewed: All systems reviewed, normal except as documented Constitutional Constitutional: Reports system reviewed and no additional complaints, except as documented, Denies fever(s) and Denies headache(s) Eyes Eyes: Reports system reviewed and no additional complaints, except as documented and Denies blurry vision ENT Ears, Nose, Mouth, and Throat: Reports system reviewed and no additional complaints, except as documented, Denies headache(s), Denies nasal congestion and Denies nasal discharge Cardiovascular Cardiovascular: Reports system reviewed and no additional complaints, except as documented, Denies chest pain and Denies dyspnea Respiratory Respiratory: Reports system reviewed and no additional complaints, except as documented, Denies chest congestion, Denies cough and Denies dyspnea Gastrointestinal Gastrointestinal: Reports system reviewed and no additional complaints, except as documented and Denies abdominal pain Genitourinary Genitourinary: Reports system reviewed and no additional complaints, except as documented and Reports abnormal vaginal bleeding Integumentary/Breasts Skin/Breast: Reports system reviewed and no additional complaints, except as documented and Denies rash Neurologic Neurologic: Reports system reviewed and no additional complaints, except as documented, Reports as per HPI and Denies headache(s) Past Medical History Past Medical History NEUROLOGIC: Negative Neurological Disorders or Seizures CARDIAC: Negative Cardiac Disorders or Congestive Heart Failure RESPIRATORY: Negative Chronic Obstructive Pulmonary Disease (COPD) GASTROINTESTINAL: Negative Gastrointestinal Disorders GENITOURINARY: Negative Genitourinary Disorders or Renal Disease REPRODUCTIVE: Negative Previous Pregnancies MUSCULOSKELETAL: Negative Musculoskeletal Disorders ENDOCRINE: Negative Endocrine Disorders, Diabetes Mellitus Type 1 or Diabetes Mellitus Type 2 HEMATOLOGIC: Positive Blood Disorders and Anemia PSYCHO/SOCIAL: Positive Depression and Anxiety OTHER HISTORY: Negative Autoimmune Disease, Falls, Blood Transfusions, Blood Transfusion Reaction, Anesthesia Reactions or Cancer Family History FAMILY HISTORY: Negative Family Psychiatric Problems, Family Respiratory Disorders, Family Cardiac Disorders, Family Gastrointestinal Problems, Family Cancer, Family Surgery or Family Anesthesia Reaction Surgical History SURGICAL: Negative Section Social History SMOKING STATUS: Never smoker SECOND HAND EXPOSURE: No ED Exam General Limitations: Present no limitations General appearance: Present alert and in no apparent distress Head Head exam: Present atraumatic Eye Eye exam: Present normal appearance, PERRL and EOMI ENT ENT exam: Present normal exam, normal oropharynx and mucous membranes moist Neck Neck exam: Present normal inspection, full ROM and trachea midline Chest Chest inspection: Present normal inspection and symmetric chest wall rise Respiratory Respiratory exam: Present normal lung sounds bilaterally Cardiovascular Cardiovascular exam: Present regular rate, normal rhythm and normal heart sounds Abdominal Exam Abdominal exam: Present soft and normal bowel sounds; Absent distention or tenderness Extremities Exam Extremities exam: Present normal inspection and full ROM Back Exam Back exam: Present normal inspection and full ROM Neurological Exam Neurological exam: Present alert, oriented X3 and CN II-XII intact Psychiatric Psychiatric exam: Present normal affect and normal mood Skin Skin exam: Present warm, dry, intact and normal color Course Quality Measures none Orders Category Date Time Status US pelvic complete Stat Exams 03/14/25 08:58 Completed CBC Stat Lab 03/14/25 09:42 Completed Comprehensive Metabolic Panel Stat Lab 03/14/25 09:42 Completed HCG,Qualitative Serum Stat Lab 03/14/25 09:42 Completed Partial Thromboplastin Time Stat Lab 03/14/25 09:42 Completed Prothrombin Time with INR Stat Lab 03/14/25 09:42 Completed Vital Signs Vital signs: Vital Signs Temperature 98.0 F 03/14/25 08:45 Pulse Rate 103 H 03/14/25 08:45 Respiratory Rate 17 03/14/25 08:45 Blood Pressure 105/75 03/14/25 08:45 Pulse Oximetry (%) 96 03/14/25 08:45 Oxygen Delivery Method Room Air 03/14/25 08:45 O2 sats are 96% on room air wnl Vaginal Bleeding MDM Narrative MDM Narrative: 30-year-old female with no significant medical problems presents to the emergency department today stating that she gave approximately 1 month ago patient reports that she noted some bleeding 2 days ago and bleeding today patient reports otherwise has been well since giving On exam patient well-appearing patient does not appear ill or toxic no acute distress Lab work and imaging obtained no acute emergent findings noted at time of discharge patient is no active bleeding hemoglobin stable Patient discharged home in no distress to follow-up with primary care doctor in the next 24 to 48 hours and for any worsening symptoms to return to the ER immediately Patient data External records reviewed:: [facility] previous records Clinical information provided by:: patient Social determinants that could affect healthcare access:: none Patient has the following chronic illnesses:: none How is presenting disease/condition affected by chronic disease/condition?: no chronic disease Evaluation data The following diagnostics were reviewed and interpreted by me:: lab results and radiology exam(s) Lab and/or radiology exams considered but not ordered:: labs and rad obtained Interpretation Summary: reviewed Medications / Prescriptions Medications or Prescriptions considered but not ordered:: no meds Medication administrations:: no meds Consultations Consultation(s) initiated? (list below): No Diagnosis Vaginal Bleeding Differential Diagnosis: missed , threatened and dysfunctional uterine bleeding Most likely diagnosis given after review of the tests above:: Dysfunctional bleeding Admission Indicated Admission indicated?: not indicated Admission Request Was there a request for admission?: No Disposition Plan Disposition Plan: Discharge Discharge Attestation Discharge Attestation: The patient and all family members were given an opportunity to ask questions and understood the discharge instructions. Discharge instructions specifically effects, indications for sooner follow up or return to the emergency department, and the expected course of current diagnosis. Patient condition: Stable Discharge Plan Plan Patient Disposition: HOME (Self Care) Discharge Disposition comment: Stable Prescriptions/Referrals Prescriptions/Med Rec: No Action omeprazole 20 mg capsule,delayed release(DR/EC) 20 mg PO QDAY 30 Days Qty: 30 0RF Referrals: Stone Avalos MD [Primary Care Provider] - In 1 week Problem List Clinical Impression: Vaginal bleeding Patient/Caregiver Discharge Instructions Additional Instructions: Please follow up with your primary care doctor in the next 24-48hrs for any worsening symptoms return here immediately Print Language: Estonian Stand Alone Forms: Chaparrita Award Info., Patient Portal Info Letter PA/COLORS CUSTODIAN Supervising Physician PA/COLORS CUSTODIAN Supervising Physician: Dr. olsen
== END 2025-03-14 11:31 | disposition home or self-care (01) ==
PROVIDERS: Emergency Provider Nurse Practitioner Primary Care; PCP Family Medicine
DX: O72.2 Delayed and secondary postpartum hemorrhage (principal)
CPT/HCPCS: 36415; 76856; 80053; 84703; 85025; 85610; 85730; 99283

== ENCOUNTER 2025-03-24 14:10 | Outpatient (AMB) | payer MEDICAID, SELFPAY ==
[2025-03-24 14:29] VITALS: BP 113/78; PULSE 94; RESP 18; TEMP 35.5; O2SAT 98; BMI 45.6
--- NOTE | 2025-03-24 14:30 | AMBOBPPN_ITS ---
Vital Signs 03/24/25 14:29 03/24/25 14:32 Height 1.57 m Height Method Stated Weight 112.491 kg Weight Measurement Method Standing Scale BMI 45.6 BP 113/78 113/78 Blood Pressure Source Automatic Cuff Blood Pressure Location Left Upper Arm Position Sitting Respiration 18 18 Pulse 94 94 Pulse Source Monitor Temp 96 F L 96 F L Temp Source Oral Pulse Oximetry (%) 98 98 Oxygen Delivery Method Room Air Allergies/Home Meds Allergies & Medications Allergies No Known Allergies Allergy (Verified 03/24/25 14:30) Medication Reconciliation tranexamic acid 650 mg tablet 650 mg PO Q6H 5 days #20 tabs 03/24/25 [Rx] Intake Visit Data Collection New Patient or Established: Established Patient (seen at [facility] within 3 years) Reason for Visit:: EMERGENCY ROOM FOLLOW UP Seen by Clinical Staff ONLY (RN/MA): No Division Manager Required: No Do You Feel Safe at Home: Yes Authorities Contacted: N/A PCP or OBGYN visit in last 3 months: Yes Hx Now: No Are you currently on any form of Control: Yes Pain Present Currently: No Pain Scale Used: Berkowitz-Dodd/Numerical Pain scale:: 0 Smoking Status 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 Past Medical History: No Hx Neurological Disorders, No Hx Cardiac Disorders, No Hx Cancer, Yes Hx Blood Disorders, Yes Hx Anemia, No Hx Gastrointestinal Disorders, No Hx Renal Disease, No Hx Diabetes Mellitus Type 1 and No Hx Diabetes Mellitus Type 2 Questionnaires Covid-19 Vaccine Questionnaire Has patient been vacinated for Covid-19 Have you been vacinated for Covid-19: Yes Social History Living Situation History Lives With: Family Housing: House Tobacco History Smoking Status: Never smoker Second Hand Smoke Exposure: No Alcohol History Alcohol Intake: Never Domestic Abuse History Do You Feel Safe at Home: Yes EPDS - PP Depression Screening [place] Pospartum Depression Screen I have been able to laugh and see the funny side of things: (1) Not quite so much now I have looked forward with enjoyment to things: (2) Definitely less than I used to I have blamed myself unnecessarily when things went wrong: (1) Not very often I have been anxious or worried for no good reason: (2) Yes, sometimes I have felt scared or panicky for no very good reason: (2) Yes, sometimes Things have been getting on top of me: (2) Yes, sometimes I haven't been coping as well as usual I have been so unhappy that I have had difficulty sleeping: (3) Yes, most of the time I have felt sad or miserable: (1) Not very often I have been so unhappy that I have been crying: (2) Yes, quite often The thought of harming myself has occurred to me: (0) Never EPDS completed yes HPI Interval History: Adelso Parrish presents with concerns about heavy vaginal bleeding following her in February, approximately one month ago. She reports that bleeding had stopped for about a week and a half in mid-February after delivery. In early March, she experienced what she thought was her first period. However, on Sunday, the bleeding became heavier, soaking through her clothes. By Sunday night and Sunday morning, the bleeding significantly increased in volu me, especially with movement. The patient describes the bleeding as much heavier than her typical menstrual flow, with large amounts of blood coming out, particularly when she moved. This episode of heavy bleeding lasted for about two days before she sought medical attention at the ER on Sunday. She denies any other associated symptoms but expresses concern about her iron levels due to the heavy blood loss. Exam Narrative Physical exam: - Abdominal: incision site examined. Skin ends have joined. Incision line is barely visible. Some dried skin noted on the incision site. General General Appearance: alert, in no apparent distress and healthy appearing Head Head exam: atraumatic Neck Neck exam: Present normal inspection and trachea midline Chest Chest inspection: Present normal inspection and symmetric chest wall rise External exam: Present normal external exam; Absent tenderness Neuro Neurological exam: Present oriented X3 Psych Psychiatric exam: Present normal affect and normal mood Office Procedures OB Clinic LOC & Office Proc's Nursing/Assessment Patient Status: Established Patient OB Clinic Nursing Assessment: Medication Reconciliation, Update PMH in EMR and Vital Signs OB Clinic Coordination of Care: Complex Care and Chronic Disease 1-5, Consent,records obtained, informed consent, Education Simp Pt/Fam, Lab and Imaging orders, Results/Orders obtained and Staff clarify orders Established Patient Charge Established Patient Point Assignment: 105 Post Follow-up Visit Post Follow up Visit: Yes Assessment & Plan Diagnosis / Problem List (1) Menorrhagia with regular cycle: Status: Acute Plan Heavy Menstrual Bleeding: - Heavy vaginal bleeding starting Sunday, progressing to saturating clothing by Sunday. - First menstrual period following delivery, commonly heavier than usual. - ER evaluation including ultrasound and blood work reportedly normal. - incision site well-healed with some dried skin present. Plan: - Prescribe tranexamic acid for management of heavy menstrual bleeding: ? 5-day course to be taken during heavy menstrual flow ? Non-hormonal medication, does not affect fertility - Order serum iron level: ? Draw at [facility] ? Follow up with results via phone call on - Instruct patient on proper incision site care: ? Clean daily during shower ? Use washcloth, scrubbing side to side (not up and down) - Advise waiting 3 months [id number] before attempting conception: ? Explained risks of placental complications with shorter interval - Return to clinic if unable to conceive after a couple of months of trying: ? Consider prescribing Clomid if needed - No scheduled follow-up; return to clinic as needed for issues.
[2025-03-24 14:32] VITALS: BP 113/78; PULSE 94; RESP 18; TEMP 35.5; O2SAT 98
== END 2025-03-24 14:53 | disposition home or self-care (01) ==
PROVIDERS: Supervising Provider Obstetrics & Gynecology; Visit Provider Obstetrics & Gynecology
DX: Z39.2 Encounter for routine postpartum follow-up (principal); O72.2 Delayed and secondary postpartum hemorrhage
CPT/HCPCS: Z1038